=== PATIENT | female | born 1945 | race Caucasian/White ===

== ENCOUNTER 2023-02-27 09:49 | Outpatient (AMB) | payer MEDICARE, SELFPAY ==
--- NOTE | 2023-02-27 09:44 | MHC.PC.OV ---
Intake Visit Reasons: F/u needs PHQ-9, Fall risk/Tobacco, Risk Coding Allergies Sulfa (Sulfonamide Antibiotics) Allergy (Unknown, Verified 05/10/22 10:09) Unknown Tobacco use date assessed: 09/13/21 [facility] Medical History (Updated 09/13/21 @ 14:39 by Luis Torres MD) Hypothyroidism ALS (amyotrophic lateral sclerosis) Surgical History History of tonsillectomy Family History Father COPD (chronic obstructive pulmonary disease) Mother Stroke Social History Housing: House Patient Tobacco Use Status: Never used Tobacco e-Cigarette/Vaping Use: Never Used Second Hand Smoke Exposure: No Current occupational status: retired Cognitive needs: No Hearing needs: Yes Vision needs: Yes Questionnaire Thrive Questionnaire Date Thrive assessed: 09/13/21 WILEY-7 AMB Questionnaire WILEY-7 Date WILEY - 7 assessed: 05/10/22 Source: Developed by Drs. Dao Mills, Mena West, Mahendra Michelle and colleagues, with an educational karin from [employer]. Physical exam (Primary Care) Tobacco/Smoking Status: Tobacco use Status Tobacco use date assessed 09/13/21 02/19/23 15:20 Patient Tobacco Use Status Never used Tobacco 02/19/23 15:20 e-Cigarette/Vaping Use Never Used 02/19/23 15:20 Thrive Assessment: Date of Thrive Assessment Date Thrive assessed 09/13/21 02/19/23 15:20 Telehealth Telehealth Location of provider rendering services: practice address Location of patient: address on file Patient Identification confirmed using: Name, : Yes Telehealth method: voice only Coding
--- NOTE | 2023-02-27 09:46 | MHC.PC.OV ---
Intake Visit Reasons: F/u needs PHQ-9, Fall risk/Tobacco, Risk Coding Allergies Sulfa (Sulfonamide Antibiotics) Allergy (Unknown, Verified 02/27/23 09:47) Unknown Medication List - Last Reconciled 02/27/23 by Luis Torres MD diphenoxylate-atropine 2.5-0.025 mg (Lomotil) 1 tab PO BID PRN lactose-reduced food with fibr 0.06 gram-1.5 kcal/mL (Jevity 1.5 Broderick) PO; lactulose 15 grams (22.5 mL) PO DAILY PRN levothyroxine 25 mcg PO .three times a day nutritional supplements (Osmolite 1.5 Broderick) 1 ea feeding tube .five times a day zolpidem (Ambien) 10 mg PO BEDTIME Tobacco use date assessed: 09/13/21 Fall risk assessment: No Falls in past year Last assessed Fall Risk: 02/27/23 Dental Screening Dental Screen Date: 02/27/23 Did you have a dental visit in the last 12 months?: Yes Did you have a dental problem in the last 6 months where you did not have access to dental care?: No Was dental information given to patient?: Patient has dentist HPI F/u needs PHQ-9, Fall risk/Tobacco, Risk Coding HPI Details hypothyroidism on rx; compliant [facility] Medical History Hypothyroidism ALS (amyotrophic lateral sclerosis) Surgical History History of tonsillectomy Family History Father COPD (chronic obstructive pulmonary disease) Mother Stroke Social History Housing: House Patient Tobacco Use Status: Never used Tobacco e-Cigarette/Vaping Use: Never Used Second Hand Smoke Exposure: No Current occupational status: retired Cognitive needs: No Hearing needs: Yes Vision needs: Yes Questionnaire PHQ-9 Over the last 2 weeks, how often have you been bothered by any of the following problems? 1. Little interest or pleasure in doing things: not at all 2. Feeling down, depressed, or hopeless: not at all 3. Trouble falling or staying asleep, or sleeping too much: not at all 4. Feeling tired or having little energy: not at all 5. Poor appetite or overeating: not at all 6. Feeling bad about yourself - or that you are a failure or have let yourself or your family down: not at all 7. Trouble concentrating on things, such as reading the newspaper or watching television: not at all 8. Moving or speaking so slowly that other people could have noticed. Or the opposite - being so fidgety or restless that you have been moving around a lot more than usual: not at all 9. Thoughts that you would be better off or of hurting yourself in some way: not at all Total score: 0 Depression Screening Interpretation: Negative Depression Screening Done: Yes [id number] - PHQ-9 Billing: Yes Source: Developed by Drs. Dao Mills, Mena West, Mahendra Michelle and colleagues, with an educational karin from [employer]. Thrive Questionnaire Date Thrive assessed: 02/27/23 I am a: Patient What is your living situation today?: I have a steady place to live Within the past 12 months, did the food you bought not last and you didn't have the money to get more?: Never true Within the past 12 months, did you worry whether your food would run out before you got money to buy more?: Never true Do you have trouble paying for medicines?: No Do you have trouble getting transportation to medical appointments?: No Do you have trouble paying your heating and electricity bill?: No Do you have trouble taking care of your child, family member or friend?: No Do you have trouble with day-to-day activities such as bathing, preparing meals, shopping, managing finances, etc.?: No Are you currently unemployed and looking for a job?: No Are you interested in more education?: No Please select the resources that you would like help with: None AUDIT C Alcohol Use Questionnaire (AUDIT-C) 1. How often do you have a drink containing alcohol?: Never 3. How often do you have six or more drinks on one occasion?: Never Total Score: 0 Score Reviewed/Action Taken: Yes WILEY-7 AMB Questionnaire WILEY-7 Date WILEY - 7 assessed: 02/27/23 Not being able to stop or control worryin = Not at all Source: Developed by Drs. Dao Mills, Mena West, Mahendra Michelle and colleagues, with an educational karin from [employer]. Review of Systems Const Denies chills, Denies headache(s) and Denies weight loss ENT Denies headache(s) Card Denies chest pain, Denies syncope, Denies irregular heart rhythm and Denies dyspnea Resp Denies chest congestion, Denies cough and Denies dyspnea GI Denies abdominal pain, Denies change in stool character, Denies nausea and Denies vomiting Musc Denies deformity and Denies joint swelling Neuro Denies syncope and Denies headache(s) Physical exam (Primary Care) Tobacco/Smoking Status: Tobacco use Status Tobacco use date assessed 09/13/21 02/27/23 09:48 Patient Tobacco Use Status Never used Tobacco 02/27/23 09:48 e-Cigarette/Vaping Use Never Used 02/27/23 09:48 PHQ-9: PHQ-9 Score PHQ-9: Total score 0 02/27/23 09:48 Depression Screening Interpretation: Negative Thrive Assessment: Date of Thrive Assessment Date Thrive assessed 02/27/23 02/27/23 09:48 Telehealth Telehealth Location of provider rendering services: practice address Location of patient: address on file Patient Identification confirmed using: Name, : Yes Telehealth method: voice only Patient verbally consented to treatment: Yes Patient verbally consented to billing insurance company: Yes Patient informed of any privacy concerns related to visit: Yes Minutes spent on Phone/Video with Pt.: 15 (telephone) Assessment and Plan Assessment & Plan (1) Hypothyroidism: Code(s): E03.9 - Hypothyroidism, unspecified Plan: stable; same rx Orders: Orders Comprehensive [place]. Panel Fast Today N28.9 - Disorder of kidney and ureter, unspecified Lipid Panel Today E78.5 - Hyperlipidemia, unspecified Complete Blood Count Auto Diff Today D64.9 - Anemia, unspecified Thyroid Stimulating Hormone Today E03.9 - Hypothyroidism, unspecified Coding Level of Care Code Tele Est Pt Level 3 (38937) Diagnoses Hypothyroidism E03.9
== END 2023-02-27 10:50 | disposition home or self-care (01) ==
LOC: HO.HMGH 09:49
PROVIDERS: PCP Internal Medicine; Visit Provider Internal Medicine
DX: E03.9 Hypothyroidism, unspecified (principal)
CPT/HCPCS: 99442